=== PATIENT | female | born 1965 | race Caucasian/White ===

== ENCOUNTER 2025-02-26 07:43 | Day surgery (SDC) | payer BC ==
[2025-02-26] MEDS ORDERED: Propofol 200 MG/20 ML SDV IV ONE (07:44)
[2025-02-26] MEDS ORDERED: fentaNYL 100 MCG/2 ML SDV IV ONE (07:44)
[2025-02-26] MEDS ORDERED: Midazolam 1 MG/ML 2 ML SDV IV ONE (07:44)
[2025-02-26] MEDS ORDERED: Sodium Chloride 0.9% 10 ML Syringe FLUSH PRN (07:45)
[2025-02-26] MEDS: Lactated Ringers 1,000 ML IV SCH (08:22)
[2025-02-26] MEDS: Simethicone Drops 40 MG/0.6 ML 30 ML Bottle PO ONE (08:59)
== END 2025-02-26 10:00 | disposition home or self-care (01) ==
LOC: FB.SDS 07:43
PROVIDERS: ATTEND Surgery
DX: Z12.11 Encounter for screening for malignant neoplasm of colon (principal); D12.6 Benign neoplasm of colon, unspecified; Z80.0 Family history of malignant neoplasm of digestive organs; K57.30 Diverticulosis of large intestine without perforation or abscess without bleeding
CPT/HCPCS: 00811; 88305; A9270-GY; J2250; J2704; J3010; J7120